=== PATIENT | female | born 1995 | race Hispanic/Latino ===

== ENCOUNTER 2024-01-09 19:53 | Emergency (ER) | payer OTHER ==
[~2024-01-09] VITALS: Ht 162.6 cm; Wt 98.4 kg
[2024-01-09 20:15] LABS: APPEARANCE,URINE CLOUDY (CLEAR); BILIRUBIN,URINE NEGATIVE (NEGATIVE); COLOR,URINE LIGHT-YELLOW (YELLOW); GLUCOSE, URINE (UA) NEGATIVE (NEGATIVE); KETONES,URINE NEGATIVE (NEGATIVE); LEUKOCYTE ESTERASE ,URINE 75 Leu/uL (NEGATIVE); NITRATE,URINE NEGATIVE (NEGATIVE); PH,URINE 6.5 (5.0-8.0); PROTEIN,URINE NEGATIVE (NEGATIVE); UROBILINOGEN,URINE 0.2 mg/dL (0.2-1.0)
[2024-01-09 20:16] LABS: HCG,QUALITATIVE URINE NEGATIVE (NEGATIVE)
[2024-01-09 20:17] LABS: BASOPHILS # (AUTO) 0.07 K/uL (0.00-0.20); BASOPHILS % (AUTO) 0.7 % (0.0-5.0); EOSINOPHILS # (AUTO) 0.12 K/uL (0.00-0.70); EOSINOPHILS % (AUTO) 1.1 % (0.0-8.0); HEMATOCRIT 39.9 % (36-48); IMMATURE GRANULOCYTE ABSOLUTE 0.04 K/uL (0-1); LYMPHOCYTES # (AUTO) 2.7 K/uL (1.0-4.8); LYMPHOCYTES % (AUTO) 25.5 % (21.0-51.0); MEAN CORPUSCULAR HEMOGLOBIN 29.6 pg (27.0-33.0); MEAN CORPUSCULAR HGB CONC 33.6 g/dL (32.0-36.0); MEAN CORPUSCULAR VOLUME 88.1 fL (79-99); MONOCYTES # (AUTO) 0.6 K/uL (0.1-1.0); MONOCYTES % (AUTO) 5.9 % (3.0-13.0); NEUTROPHILS % (AUTO) 66.4 % (40.0-77.0); PLATELET COUNT (AUTO) 348 K/uL (130-400); RED BLOOD CELL COUNT(AUTO) 4.53 MIL/uL (4.00-5.50); RED CELL DISTRIBUTION WIDTH 11.8 % (11.0-15.5); WHITE BLOOD COUNT (AUTO) 10.5 K/uL (4.8-10.8)
[2024-01-09 20:18] LABS: ADD UA MICROSCOPIC YES
[2024-01-09 20:24] LABS: MUCUS,URINE RARE LPF (None Seen); SQUAMOUS EPITHELIAL CELL,UR MANY /HPF (0-2)
[2024-01-09 20:27] LABS: CREATININE 0.7 mg/dL (0.5-1.0); POTASSIUM 3.7 mmol/L (3.5-5.1)
[2024-01-09] MEDS: LACTATED RINGERS 1000ML 1,000 ML IV ONE (20:29)
[2024-01-09] MEDS: MAG/ALUM/SIMETH 30 ML UDCUP PO ONE (20:29)
[2024-01-09] MEDS: ACETAMINOPHEN 325 MG TAB PO ONE (20:30)
[2024-01-09] MEDS: PANTOPRAZOLE 40 MG/VIAL IVP ONE (20:30)
[2024-01-09] MEDS: LIDOCAINE HCL 2% VISCOUS 15 ML UDCUP PO ONE (20:30)
[2024-01-09 20:32] LABS: ALBUMIN 3.8 g/dL (3.5-5.0); BILIRUBIN,TOTAL 0.8 mg/dL (0.2-1.0); TOTAL PROTEIN, SERUM 7.7 g/dL (6.0-8.3)
[2024-01-09] MEDS: KETOROLAC 30MG VIAL (30MG/ML) IVP ONE (21:49)
[2024-01-09] MEDS: KETOROLAC 30MG VIAL (30MG/ML) ONE (21:50)
[2024-01-09] MEDS ORDERED: PHEN-846 PO (23:28)
[2024-01-09] MEDS ORDERED: CEPH500B PO (23:28)
[2024-01-10 00:20] VITALS: BP 126/79; PULSE 69; RESP 18; O2SAT 98
== END 2024-01-10 00:22 | disposition home or self-care (01) ==
LOC: EDH 19:53
DX: N39.0 Urinary tract infection, site not specified (principal); R10.30 Lower abdominal pain, unspecified
CPT/HCPCS: 99285; 74176; 96374; 96361; 96375; 82550; 80053; 85025; 87088; 81001; 81025; 36415; J7120; J1885; C9113

== ENCOUNTER 2024-07-26 02:50 | Emergency (ER) | payer SELFPAY ==
[~2024-07-26] VITALS: Ht 162.6 cm; Wt 93.5 kg
[~2024-07-26 02:50] MED LIST: CEPH500B PO; PHEN-846 PO
--- NOTE | 2024-07-26 02:53 | NUR ---
UA CUP PROVIDED
[2024-07-26 03:12] LABS: APPEARANCE,URINE CLEAR (CLEAR); BILIRUBIN,URINE NEGATIVE (NEGATIVE); COLOR,URINE COLORLESS (YELLOW); GLUCOSE, URINE (UA) NEGATIVE (NEGATIVE); KETONES,URINE NEGATIVE (NEGATIVE); LEUKOCYTE ESTERASE ,URINE NEGATIVE Leu/uL (NEGATIVE); NITRATE,URINE NEGATIVE (NEGATIVE); OCCULT BLOOD,URINE NEGATIVE (NEGATIVE); PH,URINE 5.5 (5.0-8.0); PROTEIN,URINE NEGATIVE (NEGATIVE); UROBILINOGEN,URINE 0.2 mg/dL (0.2-1.0)
[2024-07-26 03:18] LABS: BACTERIA,URINE RARE /HPF (None Seen); RBC,URINE 0-1 /HPF (0-1); SQUAMOUS EPITHELIAL CELL,UR RARE /HPF (0-2)
[2024-07-26 03:18] LABS: BASOPHILS # (AUTO) 0.07 K/uL (0.00-0.20); BASOPHILS % (AUTO) 0.6 % (0.0-5.0); EOSINOPHILS % (AUTO) 0.9 % (0.0-8.0); HEMATOCRIT 36.8 % (36-48); IMMATURE GRANULOCYTE ABSOLUTE 0.07 K/uL (0-1); LYMPHOCYTES # (AUTO) 2.2 K/uL (1.0-4.8); LYMPHOCYTES % (AUTO) 19.6 % (21.0-51.0); MEAN CORPUSCULAR HEMOGLOBIN 30.3 pg (27.0-33.0); MEAN CORPUSCULAR HGB CONC 33.4 g/dL (32.0-36.0); MEAN CORPUSCULAR VOLUME 90.6 fL (79-99); MONOCYTES # (AUTO) 0.6 K/uL (0.1-1.0); NEUTROPHILS # (AUTO) 8.1 K/uL (1.8-7.7); NEUTROPHILS % (AUTO) 73.3 % (40.0-77.0); PLATELET COUNT (AUTO) 320 K/uL (130-400); RED BLOOD CELL COUNT(AUTO) 4.06 MIL/uL (4.00-5.50); RED CELL DISTRIBUTION WIDTH 12.6 % (11.0-15.5); WHITE BLOOD COUNT (AUTO) 11.1 K/uL (4.8-10.8)
[2024-07-26] MEDS: 0.9%NACL 1000ML 1,000 ML IV ONE (03:24)
[2024-07-26 03:25] LABS: CREATININE 0.8 mg/dL (0.5-1.0); POTASSIUM 3.8 mmol/L (3.5-5.1)
--- NOTE | 2024-07-26 03:48 | ERN ---
General Chief Complaint: OB<20 weeks gest. Stated Complaint: ABD PAIN Time Seen by MD: 02:52 Source: patient History of Present Illness Initial Comments PATIENT IS A 28-YEAR-OLD FEMALE RECENTLY FOUND OUT SHE WAS . STATES HE WAS A G-TUBE P 1 HAD UNKNOWN DATE. SHE WAS HAVING ABDOMINAL DISCOMFORT DECIDED TO COME IN TO BE EVALUATED. Allergies: Coded Allergies: No Known Allergies (Unverified Allergy, Unknown, 01/09/24) Home Meds Active Scripts Phenazopyridine HCl (Pyridium) 100 Mg Tab, 100 MG PO BID PRN for bladder spasm for 3 Days, #4 TAB Prov:ILIANA BECK MD 01/09/24 Cephalexin Monohydrate (Keflex) 500 Mg Cap, 500 MG PO QID for 7 Days, #28 CAP Prov:ILIANA BECK MD 01/09/24 Past Medical History Past Medical History: No Pertinent History Past Surgical History: Female( History) LMP: Jun 20, 2024 : 2 Para: 1 ROS Dictation CONSTITUTIONAL: NO CHILLS, NO FEVER, NO WEAKNESS, NO DIAPHORESIS, NO MALAISE. HEAD/FACE: NO SIGNS OF TRAUMA. EENT: NO EYE PAIN, NO BLURRED VISION, NO TEARING, NO DOUBLE VISION, NO EAR PAIN, NO EAR DISCHARGE, NO NOSE PAIN, NO NASAL CONGESTION, NO THROAT PAIN, NO THROAT SWELLING, NO MOUTH PAIN. RESPIRATORY: NO COUGH, NO ORTHOPNEA, NO SOB, NO STRIDOR, NO WHEEZING. CARDIOVASCULAR: NO CHEST PAIN, NO EDEMA, NO PALPITATIONS, NO SYNCOPE. GASTROINTESTINAL/ABDOMINAL: ABDOMINAL PAIN, NO CONSTIPATION, NO DIARRHEA, NO NAUSEA, NO VOMITING. GENITOURINARY: NO ABNORMAL DISCHARGE, NO DYSURIA, NO FREQUENT URINATION, NO HEMATURIA. NO COMPLAINTS OF PAIN IN THE GENITALS. MUSCULOSKELETAL: NO BACK PAIN, NO GOUT, NO JOINT PAIN, NO JOINT SWELLING, NO MUSCLE PAIN, NO MUSCLE STIFFNESS, NO NECK PAIN. INTEGUMENTARY: NO CHANGE IN COLOR, NO CHANGE IN HAIR/NAILS, NO DRYNESS, NO LESION, NO LUMPS, NO RASH. NEUROLOGICAL/PSYCH: NO ANXIETY, NOT DEPRESSED, NO EMOTIONAL PROBLEM, NO HEADACHE, NO NUMBNESS, NO PRE-EXISTING DEFICIT, NO HISTORY OF SEIZURES, NO TREMORS, NO WEAKNESS. HEMATOLOGIC/LYMPHATIC: NOT ANEMIC, NO HISTORY OF BLOOD CLOTS, NO APPARENT BLEEDING, NO BRUISING, GLANDS NOT SWOLLEN. ALL SYSTEMS NEGATIVE, EXCEPT NOTED. Physical Exam Physical Exam Dictation VITAL SIGNS: REVIEWED. GENERAL APPEARANCE: ALERT, ORIENTED X3, NO ACUTE DISTRESS, OBESE. HEAD AND FACE: NON-TRAUMATIC. EYES: PERRL, PINK CONJUNCTIVAS, EYELID NO TRAUMA, ANTERIOR CHAMBER CLEAR. EARS: PINNAS INTACT AND NO SIGNS OF TRAUMA OR ERYTHEMA. EAR CANALS CLEAR AND NO DISCHARGE. TMS NO ERYTHEMA. NOSE: NO DISCHARGE, NO BLEEDING. OROPHARYNX: MOUTH NORMAL, TEETH NO CARIES, TONGUE PINK. PHARYNX CLEAR, NO ERYTHEMA. TONSILS NO EXUDATES, NO ABSCESSES NOTED. MUCOUS MEMBRANE MOIST. NECK: SUPPLE, NON-TENDER, NO THYROMEGALY, NO MASSES, NO JVD, NO BRUITS. BREAST: DEFERRED. CHEST: NO TENDERNESS, NO CREPITUS, NO PARADOXICAL MOVEMENT, NO RETRACTIONS. LUNGS: CLEAR, WELL-VENTILATED, SYMMETRIC, NO RALES, NO WHEEZING, NO RHONCHI, NO STRIDOR, GOOD BREATH SOUNDS BILATERALLY. HEART: REGULAR RATE, REGULAR RHYTHM, NO MURMUR, NO GALLOPS. VASCULAR: NO PERIPHERAL EDEMA. ABDOMEN: SOFT, POSITIVE BOWEL SOUNDS, NONDISTENDED, NO GUARDING, SUPRAPUBIC TENDER, NO REBOUND, NO MASSES NO HEPATOMEGALY, NO SPLENOMEGALY, NO HART'S SIGN, NO HERNIAS. RECTAL: DEFERRED. GENITAL: DEFERRED. NEUROLOGICAL: NORMAL SPEECH, GROSS MOTOR FUNCTION INTACT, GROSS SENSORY FUNCTION INTACT. MUSCULOSKELETAL: NECK NONTENDER, FULL RANGE OF MOTION, BACK NONTENDER, FULL RANGE OF MOTION. EXTREMITIES: NONTENDER, FULL RANGE OF MOTION. SKIN: COLOR PINK, DRY, NO TURGOR, NO RASH, NO LACERATIONS, NO ABRASIONS, NO CONTUSIONS. LYMPHATICS: DEFERRED. Results Laboratory and Microbiology Lab and Micro Result Laboratory Tests Test 07/26/24 03:00 07/26/24 03:11 Urine Color COLORLESS (YELLOW) Urine Appearance CLEAR (CLEAR) Urine pH 5.5 (5.0-8.0) Urine Specific [place] 1.006 (1.001-1.031) Urine Protein NEGATIVE mg/dL (NEGATIVE) Urine Glucose (UA) NEGATIVE mg/dL (NEGATIVE) Urine Ketones NEGATIVE mg/dL (NEGATIVE) Urine Occult Blood NEGATIVE (NEGATIVE) Urine Nitrate NEGATIVE (NEGATIVE) Urine Bilirubin NEGATIVE mg/dL (NEGATIVE) Urine Urobilinogen 0.2 mg/dL (0.2-1.0) Urine Leukocyte Esterase NEGATIVE Zak/uL Urine RBC 0-1 /HPF (0-1) Urine WBC 2-5 /HPF (0-1) H Urine Squamous Epithelial Cells RARE /HPF (0-2) Urine Bacteria RARE /HPF (None Seen) White Blood Count 11.1 K/uL (4.8-10.8) H Red Blood Count 4.06 MIL/uL (4.00-5.50) Hemoglobin 12.3 g/dL (12.0-16.0) Hematocrit 36.8 % (36-48) Mean Corpuscular Volume 90.6 fL (79-99) Mean Corpuscular Hemoglobin 30.3 pg (27.0-33.0) Mean Corpuscular Hemoglobin Concent 33.4 g/dL (32.0-36.0) Red Cell Distribution Width 12.6 % (11.0-15.5) Platelet Count 320 K/uL (130-400) Mean Platelet Volume 9.7 fL (7.5-10.5) Immature Granulocyte % (Auto) 0.6 % (0-1) Neutrophils (%) (Auto) 73.3 % (40.0-77.0) Lymphocytes (%) (Auto) 19.6 % (21.0-51.0) L Monocytes (%) (Auto) 5.0 % (3.0-13.0) Eosinophils (%) (Auto) 0.9 % (0.0-8.0) Basophils (%) (Auto) 0.6 % (0.0-5.0) Neutrophils # (Auto) 8.1 K/uL (1.8-7.7) H Lymphocytes # (Auto) 2.2 K/uL (1.0-4.8) Monocytes # (Auto) 0.6 K/uL (0.1-1.0) Eosinophils # (Auto) 0.10 K/uL (0.00-0.70) Basophils # (Auto) 0.07 K/uL (0.00-0.20) Absolute Immature Granulocyte (auto 0.07 K/uL (0-1) Nucleated Red Blood Cells 0.0 % (0.0-0.19) Sodium Level 134 mmol/L (136-145) L Potassium Level 3.8 mmol/L (3.5-5.1) Chloride Level 99 mmol/L (101-111) L Carbon Dioxide Level 28 mmol/L (21-32) Blood Urea Nitrogen 12 mg/dL (7-18) Creatinine 0.8 mg/dL (0.5-1.0) Glomerular Filtration Rate Calc 104 mL/min (>90) Random Glucose 97 mg/dL (70-105) Total Calcium 9.1 mg/dL (8.5-10.1) Total Bilirubin 1.0 mg/dL (0.2-1.0) Aspartate Amino Transf (AST/SGOT) 28 U/L (10-37) Alanine Aminotransferase (ALT/SGPT) 60 U/L (12-78) Alkaline Phosphatase 100 U/L (50-136) Total Protein 7.5 g/dL (6.0-8.3) Albumin 3.7 g/dL (3.5-5.0) Lipase 25 U/L (16-77) Human Chorionic Gonadotropin, Quant 3658 mIU/mL (0-5) H Labs Reviewed?: Yes EKG/XRAY/US/CT/MRI Ultrasound Comment OB LESS THAN 14 WEEK ULTRASOUND-NO IUP SEEN AT THIS TIME MDM MDM: DIFFERENTIAL DIAGNOSIS: ABDOMINAL PAIN, PELVIC PAIN, PELVIC PAIN IN PATIENT IS A 28-YEAR-OLD FEMALE COMING IN TO BE EVALUATED FOR LOWER ABDOMINAL DISCOMFORT. PATIENT STATES THAT SHE JUST FOUND OUT SHE WAS CAME IN TO BE EVALUATED FOR ABDOMINAL DISCOMFORT. LABORATORY WORKUP NEGATIVE FOR ACUTE FINDINGS. ULTRASOUND DID NOT DISCLOSE AN IUP AT THIS TIME THE BASED ON QUANTITATIVE HCG IS TOO EARLY TO BE SEEN. ED Course Orders Procedure Category Date Status Time Cbc With Differential LAB 07/26/24 Complete 02:59 Comprehensive LAB 07/26/24 Complete Metabolic Panel 02:59 Lipase LAB 07/26/24 Complete 02:59 Urinalysis LAB 07/26/24 Complete W/Microscopic 02:59 Hcg,Quantitative LAB 07/26/24 Complete 02:59 0.9%Nacl 1000ml (Ns PHA 07/26/24 Complete 1000ml) 03:00 Us Ob <14 Weeks US 07/26/24 Taken 02:59 Current Medications Medications (Trade) Dose Ordered Sig/Vee Route PRN Reason Start Time Stop Time Status Last Admin Dose Admin Sodium Chloride 1,000 ml @ 0 mls/hr ONCE ONCE IV 07/26/24 03:00 07/26/24 03:01 DC 07/26/24 03:24 Vital Signs Date Time Temp Pulse Resp B/P (MAP) Pulse Ox O2 Delivery O2 Flow Rate FiO2 07/26/24 03:26 97.2 70 18 103/51 98 Room Air* 0 21 07/26/24 02:52 97.0 73 16 123/75 100 Room Air DX & DISP Disposition: Discharge Departure Impression: Primary Impression: Condition: Stable Additional Instructions: FOLLOW-UP WITH PRIMARY CARE PROVIDER IN 1 TO 2 DAYS. TAKE MEDICATIONS DIRECTED HERE IN THE EMERGENCY ROOM. OKAY TO CONTINUE HOME MEDICATIONS UNLESS OTHERWISE DISCUSSED DURING YOUR VISIT IN THE EMERGENCY ROOM TODAY. RETURN TO YOUR NEAREST EMERGENCY ROOM IF SYMPTOMS WORSEN OR IF THERE IS NO IMPROVEMENT. CALL 911 IF YOU NEED IMMEDIATE ASSISTANCE. TAKE TYLENOL [id number] NEEDED AND IF NO CONTRAINDICATIONS ARE PRESENT. INCREASE ORAL HYDRATION. A WOUND CULTURE OR URINE CULTURE WAS ORDERED HERE IN THE EMERGENCY ROOM DEPARTMENT PLEASE FOLLOW-UP WITH PRIMARY CARE PROVIDER AND ADVISE THEM TO GET REPEAT PORTS FROM OUR FACILITY. IF YOU HAD ANY JOSE LUIS WRAP/SPLINTS THAT WERE APPLIED HERE, PLEASE DO NOT REMOVE THEM UNTIL YOU SEE YOUR PRIMARY CARE OR SPECIALTY. REFERRALS: Referrals: SELF,REFERRAL (PCP) ROSEY DIA MD Time of Disposition: 04:08 ILIANA BECK MD Jul 26, 2024 03:48
[2024-07-26 03:50] LABS: ALBUMIN 3.7 g/dL (3.5-5.0); TOTAL PROTEIN, SERUM 7.5 g/dL (6.0-8.3)
[2024-07-26 04:31] VITALS: BP 110/58; PULSE 76; RESP 16; TEMP 97.5; O2SAT 100
--- NOTE | 2024-07-26 08:10 | HMCIMG ---
US OB <14 WEEKS REASON: ABD PAIN COMPARISON: None TECHNIQUE: Routine pelvic sonogram. FINDINGS: Uterus is 10.7 x 4.9 x 5.9 cm. Endometrium is 9 mm. There are no endometrial or myometrial masses. Right ovary appears normal. Left ovary was not separately identified. There are no adnexal masses. There is no free fluid in the pelvic cul-de-sac. IMPRESSION: 1. Normal pelvic sonogram.
== END 2024-07-26 04:32 | disposition home or self-care (01) ==
LOC: EDH 02:50
DX: O26.891 Other specified pregnancy related conditions, first trimester (principal); R10.84 Generalized abdominal pain; R10.2 Pelvic and perineal pain; Z3A.00 Weeks of gestation of pregnancy not specified
CPT/HCPCS: 99284; 76801; 80053; 84702; 83690; 85025; 81001; 36415; J7030

== ENCOUNTER 2024-08-03 17:10 | Emergency (ER) | payer MEDICAID ==
[~2024-08-03] VITALS: Ht 162.6 cm; Wt 92.1 kg
[2024-08-03 17:13] VITALS: BP_DIAS 85
[2024-08-03 17:51] LABS: BASOPHILS % (AUTO) 0.8 % (0.0-5.0); EOSINOPHILS # (AUTO) 0.14 K/uL (0.00-0.70); EOSINOPHILS % (AUTO) 1.1 % (0.0-8.0); IMMATURE GRANULOCYTE ABSOLUTE 0.07 K/uL (0-1); LYMPHOCYTES # (AUTO) 2.5 K/uL (1.0-4.8); LYMPHOCYTES % (AUTO) 19.5 % (21.0-51.0); MEAN CORPUSCULAR HEMOGLOBIN 30.2 pg (27.0-33.0); MEAN CORPUSCULAR HGB CONC 33.3 g/dL (32.0-36.0); MEAN CORPUSCULAR VOLUME 90.7 fL (79-99); MONOCYTES # (AUTO) 0.7 K/uL (0.1-1.0); MONOCYTES % (AUTO) 5.3 % (3.0-13.0); NEUTROPHILS # (AUTO) 9.3 K/uL (1.8-7.7); NEUTROPHILS % (AUTO) 72.8 % (40.0-77.0); PLATELET COUNT (AUTO) 337 K/uL (130-400); RED CELL DISTRIBUTION WIDTH 12.2 % (11.0-15.5); WHITE BLOOD COUNT (AUTO) 12.8 K/uL (4.8-10.8)
[2024-08-03 18:10] LABS: CREATININE 0.7 mg/dL (0.5-1.0); POTASSIUM 4.4 mmol/L (3.5-5.1)
[2024-08-03 18:28] VITALS: BP_SYST 106; PULSE 68; RESP 20; TEMP 98.8; O2SAT 98
--- NOTE | 2024-08-03 18:31 | HMCIMG ---
US OB <14 WEEKS HISTORY: vaginal bleeding and cramping during COMPARISON: 07/26/2024 FINDINGS: The uterus measures 11.2 cm in length and there appears to be a gestational sac within the endometrium with no identified yolk sac or pole or heart tones. The ovaries are unremarkable in size and echogenicity and vascularity. The adnexa are free of fluid or masses. IMPRESSION: 1.6 cm questionable gestational sac in the uterus with no identified yolk sac or pole. This may represent a early intrauterine gestation that would measure 5 weeks.
[2024-08-03 18:49] LABS: APPEARANCE,URINE CLEAR (CLEAR); BILIRUBIN,URINE NEGATIVE (NEGATIVE); COLOR,URINE COLORLESS (YELLOW); GLUCOSE, URINE (UA) NEGATIVE (NEGATIVE); KETONES,URINE NEGATIVE (NEGATIVE); LEUKOCYTE ESTERASE ,URINE NEGATIVE Leu/uL (NEGATIVE); NITRATE,URINE NEGATIVE (NEGATIVE); OCCULT BLOOD,URINE SMALL (NEGATIVE); PH,URINE 6.5 (5.0-8.0); PROTEIN,URINE NEGATIVE (NEGATIVE); UROBILINOGEN,URINE 0.2 mg/dL (0.2-1.0)
[2024-08-03 18:50] LABS: ADD UA MICROSCOPIC YES
[2024-08-03 18:51] LABS: RBC,URINE 0-1 /HPF (0-1); SQUAMOUS EPITHELIAL CELL,UR RARE /HPF (0-2); WBC,URINE 0-1 /HPF (0-1)
--- NOTE | 2024-08-03 19:18 | ERN ---
General Chief Complaint: Vaginal Bleeding Stated Complaint: BLEEDING OB5-6WKS Time Seen by MD: 17:11 Time Seen by Midlevel: 17:11 Source: patient History of Present Illness Initial Comments Patient is a 28-year-old female presenting to the emergency department with light vaginal spotting that started earlier today. Patient states she had a positive test one week ago. She has an appointment with her OBGYN coming up in two days. She is currently taking vitamins and denies taking any other medication. Denies any large clots or severe lower abdominal cramping. Allergies: Coded Allergies: No Known Allergies (Unverified Allergy, Unknown, 01/09/24) Home Meds Active Scripts Phenazopyridine HCl (Pyridium) 100 Mg Tab, 100 MG PO BID PRN for bladder spasm for 3 Days, #4 TAB Prov:ILIANA BECK MD 01/09/24 Cephalexin Monohydrate (Keflex) 500 Mg Cap, 500 MG PO QID for 7 Days, #28 CAP Prov:ILIANA BECK MD 01/09/24 Past Medical History Past Medical History: No Pertinent History Past Surgical History: Female( History) LMP: Jun 20, 2024 : 2 Para: 1 Aborts: 0 ROS Dictation CONSTITUTIONAL: Negative except for HPI HEAD/FACE: Negative except for HPI EENT: Negative except for HPI RESPIRATORY: Negative except for HPI GASTROINTESTINAL/ABDOMINAL: Negative except for HPI GENITOURINARY: Negative except for HPI MUSCULOSKELETAL: Negative except for HPI INTEGUMENTARY: Negative except for HPI NEUROLOGICAL/PSYCH: Negative except for HPI HEMATOLOGIC/LYMPHATIC: Negative except for HPI All Systems Negative, Except as noted above. 13 point review of systems assessed and all negative except for above. Physical Exam Physical Exam Dictation Vital Signs reviewed General Appearance: Alert, oriented x 3, no acute distress, well developed, nourished. Head and Face: non-traumatic. Eyes: PERRL, pink conjunctivas, eyelid no trauma, anterior chamber with arcus senilis. Ears: Pinnas intact and no signs of trauma or erythema ear canals clear and no discharge TM no erythema Nose: No discharge, no bleeding. Oropharynx: Mouth normal, tongue pink, pharynx clear,no erythema, tonsils no exudates, no abscesses noted, mucous membrane moist Neck: Supple, non-tender, no thyromegaly, no masses, no JVD, no bruits Breast:Deferred Chest:No tenderness, no crepitus, no paradoxical movement, no retractions Lungs:Clear, well-ventilated, symmetric, no rales, no wheezing, no rhonchi, no stridor, good breath sounds bilaterally Heart: Regular rate, regular rhythm, no murmur, no gallops Vascular: no peripheral edema, Abdomen: Soft, positive bowel sounds, nondistended, no guarding, nontender, no rebound, no masses no hepatomegaly, no splenomegaly, no York's sign, no hernias. Rectal: Deferred Genital: Deferred Neurological: Normal speech, motor function intact, sensory function intact Musculoskeletal: Neck nontender, full range of motion, back nontender, full range of motion, Extremities: nontender, full range of motion Skin: Color pink, dry, no turgor, no rash, no lacerations, no abrasions, no contusions. Lymphatic: Deferred Results Laboratory and Microbiology Lab and Micro Result Laboratory Tests Test 08/03/24 17:29 08/03/24 18:37 White Blood Count 12.8 K/uL (4.8-10.8) H Red Blood Count 4.30 MIL/uL (4.00-5.50) Hemoglobin 13.0 g/dL (12.0-16.0) Hematocrit 39.0 % (36-48) Mean Corpuscular Volume 90.7 fL (79-99) Mean Corpuscular Hemoglobin 30.2 pg (27.0-33.0) Mean Corpuscular Hemoglobin Concent 33.3 g/dL (32.0-36.0) Red Cell Distribution Width 12.2 % (11.0-15.5) Platelet Count 337 K/uL (130-400) Mean Platelet Volume 10.1 fL (7.5-10.5) Immature Granulocyte % (Auto) 0.5 % (0-1) Neutrophils (%) (Auto) 72.8 % (40.0-77.0) Lymphocytes (%) (Auto) 19.5 % (21.0-51.0) L Monocytes (%) (Auto) 5.3 % (3.0-13.0) Eosinophils (%) (Auto) 1.1 % (0.0-8.0) Basophils (%) (Auto) 0.8 % (0.0-5.0) Neutrophils # (Auto) 9.3 K/uL (1.8-7.7) H Lymphocytes # (Auto) 2.5 K/uL (1.0-4.8) Monocytes # (Auto) 0.7 K/uL (0.1-1.0) Eosinophils # (Auto) 0.14 K/uL (0.00-0.70) Basophils # (Auto) 0.10 K/uL (0.00-0.20) Absolute Immature Granulocyte (auto 0.07 K/uL (0-1) Nucleated Red Blood Cells 0.0 % (0.0-0.19) Sodium Level 141 mmol/L (136-145) Potassium Level 4.4 mmol/L (3.5-5.1) Chloride Level 103 mmol/L (101-111) Carbon Dioxide Level 28 mmol/L (21-32) Blood Urea Nitrogen 12 mg/dL (7-18) Creatinine 0.7 mg/dL (0.5-1.0) Glomerular Filtration Rate Calc 122 mL/min (>90) Random Glucose 85 mg/dL (70-105) Total Calcium 9.6 mg/dL (8.5-10.1) Human Chorionic Gonadotropin, Quant 71238 mIU/mL (0-5) H Urine Color COLORLESS (YELLOW) Urine Appearance CLEAR (CLEAR) Urine pH 6.5 (5.0-8.0) Urine Specific [place] 1.001 (1.001-1.031) Urine Protein NEGATIVE mg/dL (NEGATIVE) Urine Glucose (UA) NEGATIVE mg/dL (NEGATIVE) Urine Ketones NEGATIVE mg/dL (NEGATIVE) Urine Occult Blood SMALL (NEGATIVE) H Urine Nitrate NEGATIVE (NEGATIVE) Urine Bilirubin NEGATIVE mg/dL (NEGATIVE) Urine Urobilinogen 0.2 mg/dL (0.2-1.0) Urine Leukocyte Esterase NEGATIVE Zak/uL Urine RBC 0-1 /HPF (0-1) Urine WBC 0-1 /HPF (0-1) Urine Squamous Epithelial Cells RARE /HPF (0-2) Urine Bacteria None /HPF (None Seen) Labs Reviewed?: Yes MDM MDM: Patient is a 28-year-old female presenting to the emergency department with light vaginal spotting that started earlier today. Patient states she had a positive test one week ago. She has an appointment with her OBGYN coming up in two days. She is currently taking vitamins and denies taking any other medication. Denies any large clots or severe lower abdominal cramping. On physical examination patient is in no acute distress. Abdominal examination is unremarkable. Her CBC and chemistries unremarkable. Her hCG quant is which is an increase from previous hCG quant that was performed approximately one week ago of 3000. Her pelvic ultrasound shows a questionable gestational sac which could be related to an early intrauterine gestation. There was no signs of an ectopic at this time. Her urinalysis does not show any evidence of infection. Patient already has an appointment with her OBGYN in two days. She was advised to keep the appointment for possible hCG testing and repeat ultrasound. If she was to develop any new or worsening symptoms she was advised to report to the ER for further evaluation. Patient is agreeable with this plan and all of her questions have been answered Differential diagnosis: 1st trimester , spontaneous , urinary tract infection, implantation bleeding There are no social concerns with this patient. Prescription drug management Prescriptions will include: None Medical management and examination interpretation discussions were had by me with other qualified healthcare professionals as indicated for the patient's care. ED Course Orders Procedure Category Date Status Time Cbc With Differential LAB 08/03/24 Complete 17:11 Basic Metabolic Panel LAB 08/03/24 Complete 17:11 Urinalysis Profile LAB 08/03/24 Complete 17:11 Hcg,Quantitative LAB 08/03/24 Complete 17:13 Us Ob <14 Weeks US 08/03/24 Resulted 17:19 Vital Signs Date Time Temp Pulse Resp B/P (MAP) Pulse Ox O2 Delivery O2 Flow Rate FiO2 08/03/24 18:28 98.8 68 20 106/ 98 Room Air* 0 21 08/03/24 17:13 98.8 68 20 125/85 98 Room Air 0 DX & DISP Disposition: Discharge Departure Impression: Primary Impression: First trimester Additional Impression: Vaginal spotting Condition: Stable Additional Instructions: Your blood work today is unremarkable. Your hCG quant is . Your pelvic ultrasound shows a 1.6 cm questionable gestational sac in the uterus with no identified yolk sac or pole. This may represent an early . You will need to follow up with your OBGYN on Monday as scheduled for repeat hCG testing and possibly a repeat ultrasound. If you develop any new or worsening symptoms please return to the emergency department for further evaluation. Referrals: HUMERA MCMILLAN MD (PCP) Time of Disposition: 19:13 I have reviewed the case, and I agree with, Diagnosis and Plan I performed the substantive portion of the visit. I have reviewed and personally made and approve the management plan that is documented in the note by myself or the BASILIO. I acknowledge for responsibility for the patient's management plan. MISTY FINNEGAN Aug 03, 2024 19:18
== END 2024-08-03 19:34 | disposition home or self-care (01) ==
LOC: EDH 17:10
DX: O26.851 Spotting complicating pregnancy, first trimester (principal); R10.2 Pelvic and perineal pain; Z3A.01 Less than 8 weeks gestation of pregnancy; Z79.899 Other long term (current) drug therapy; Z98.890 Other specified postprocedural states
CPT/HCPCS: 36415; 76801; 80048; 81001; 84702; 85025; 99284

== ENCOUNTER 2025-01-20 00:51 | Emergency (ER) | payer MEDICAID ==
[~2025-01-20] VITALS: Ht 162.6 cm; Wt 99.8 kg
--- NOTE | 2025-01-20 00:55 | NUR ---
PT ARRIVED A TRAUMA ALERT VIA POV SP FALL DOWN STAIRS WITH -LOC, - HEAD INJURY, - BT, 30 WKS . PT REPORTS SLIPPING AND FALLING TO HER BUTTOCKS SHE FELL DOWN THE STAIRS. DENIES MIDLINE CERVICAL TENDERNESS, DENIES VAGINAL BLEEDING. REPORTS DECREASED MOVEMENT, FHT 144 UPON ARRIVAL TO ED. PT IS A&OX4, GCS 15, RESP EVEN AND UNLABORED ON RA, AIRWAY PATENT AND MAINTAINED. DENIES NEEDS AT THIS TIME. SEE TRAUMA FLOW SHEET.
--- NOTE | 2025-01-20 02:04 | ERN ---
General Chief Complaint: Trauma Activation Stated Complaint: FALL Time Seen by MD: 00:52 Source: patient History of Present Illness Initial Comments Patient is a 29-year-old female coming in after she slipped landing on her bottom coming down steps. She states that she was concerned because she could not feel the baby move. She does not have complaint of pain. Allergies: Coded Allergies: No Known Allergies (Unverified Allergy, Unknown, 01/09/24) Home Meds Active Scripts Phenazopyridine HCl (Pyridium) 100 Mg Tab, 100 MG PO BID PRN for bladder spasm for 3 Days, #4 TAB Prov:ILIANA BECK MD 01/09/24 Cephalexin Monohydrate (Keflex) 500 Mg Cap, 500 MG PO QID for 7 Days, #28 CAP Prov:ILIANA BECK MD 01/09/24 Past Medical History Past Medical History: No Pertinent History Past Surgical History: Female( History) : 2 Para: 1 Aborts: 0 ROS Dictation CONSTITUTIONAL: No chills, no fever, no weakness, no diaphoresis, no malaise. HEAD/FACE: No signs of trauma. EENT: No eye pain, no blurred vision, no tearing, no double vision, no ear pain, no ear discharge, no nose pain, no nasal congestion, no throat pain, no throat swelling, no mouth pain. RESPIRATORY: No cough, no orthopnea, no SOB, no stridor, no wheezing. CARDIOVASCULAR: No chest pain, no edema, no palpitations, no syncope. GASTROINTESTINAL/ABDOMINAL: No abdominal pain, no constipation, no diarrhea, no nausea, no vomiting. GENITOURINARY: No abnormal discharge, no dysuria, no frequent urination, no hematuria. No complaints of pain in the genitals. MUSCULOSKELETAL: No back pain, no gout, no joint pain, no joint swelling, no muscle pain, no muscle stiffness, no neck pain. INTEGUMENTARY: No change in color, no change in hair/nails, no dryness, no lesion, no lumps, no rash. NEUROLOGICAL/PSYCH: No anxiety, not depressed, no emotional problem, no headache, no numbness, no pre-existing deficit, no history of seizures, no tremors, no weakness. HEMATOLOGIC/LYMPHATIC: Not anemic, no history of blood clots, no apparent bleeding, no bruising, glands not swollen. All Systems Negative, Except as Noted. Physical Exam Physical Exam Dictation VITAL SIGNS: Reviewed. GENERAL APPEARANCE: Alert, oriented x3, no acute distress, obese. HEAD AND FACE: Non-traumatic. EYES: PERRL, pink conjunctivas, eyelid no trauma, anterior chamber clear. EARS: Pinnas intact and no signs of trauma or erythema. Ear canals clear and no discharge. TMs no erythema. NOSE: No discharge, no bleeding. OROPHARYNX: Mouth normal, teeth no caries, tongue pink. Pharynx clear, no erythema. Tonsils no exudates, no abscesses noted. Mucous membrane moist. NECK: Supple, non-tender, no thyromegaly, no masses, no JVD, no bruits. BREAST: Deferred. CHEST: No tenderness, no crepitus, no paradoxical movement, no retractions. LUNGS: Clear, well-ventilated, symmetric, no rales, no wheezing, no rhonchi, no stridor, good breath sounds bilaterally. HEART: Regular rate, regular rhythm, no murmur, no gallops. VASCULAR: No peripheral edema. ABDOMEN: Soft, positive bowel sounds, , no guarding, nontender, no rebound, no masses no hepatomegaly, no splenomegaly, no York's sign, no hernias. RECTAL: Deferred. GENITAL: Deferred. NEUROLOGICAL: Normal speech, gross motor function intact, gross sensory function intact. MUSCULOSKELETAL: Neck nontender, full range of motion, back nontender, full range of motion. EXTREMITIES: Nontender, full range of motion. SKIN: Color pink, dry, no turgor, no rash, no lacerations, no abrasions, no contusions. LYMPHATICS: Deferred. Results Laboratory and Microbiology Labs Reviewed?: Yes EKG/XRAY/US/CT/MRI Ultrasound Comment Ultrasound--BP P normal MDM MDM: Differential diagnosis: Fall, decreased movement, Rationale: Tests considered and ordered secondary to shared decision making include: Previous outside records reviewed: Old ER visits. Patient is a 29-year-old female at 24 weeks by date coming in after she fell down and was concerned that the fetus was not moving. Ultrasound BP P did show normal findings. Patient will be discharged in stable condition she states he has been asymptomatic since she got here. ED Course Orders Procedure Category Date Status Time Us Fbp Wo Non-Stress US 01/20/25 Taken 00:53 Vital Signs Date Time Temp Pulse Resp B/P (MAP) Pulse Ox O2 Delivery O2 Flow Rate FiO2 01/20/25 01:00 97.9 84 17 121/78 99 Room Air* 0 21 01/20/25 00:52 97.9 87 20 129/85 100 Room Air DX & DISP Disposition: Discharge Departure Impression: Primary Impression: Wellness examination Condition: Stable Additional Instructions: FOLLOW-UP WITH PRIMARY CARE PROVIDER IN 1 TO 2 DAYS. TAKE MEDICATIONS DI RECTED HERE IN THE EMERGENCY ROOM. OKAY TO CONTINUE HOME MEDICATIONS UNLESS OTHERWISE DISCUSSED DURING YOUR VISIT IN THE EMERGENCY ROOM TODAY. RETURN TO YOUR NEAREST EMERGENCY ROOM IF SYMPTOMS WORSEN OR IF THERE IS NO IMPROVEMENT. CALL 911 IF YOU NEED IMMEDIATE ASSISTANCE. TAKE TYLENOL [id number] NEEDED AND IF NO CONTRAINDICATIONS ARE PRESENT. INCREASE ORAL HYDRATION. A WOUND CULTURE OR URINE CULTURE WAS ORDERED HERE IN THE EMERGENCY ROOM DEPARTMENT PLEASE FOLLOW-UP WITH PRIMARY CARE PROVIDER AND ADVISE THEM TO GET REPEAT PORTS FROM OUR FACILITY. IF YOU HAD ANY JOSE LUIS WRAP/SPLINTS THAT WERE APPLIED HERE, PLEASE DO NOT REMOVE THEM UNTIL YOU SEE YOUR PRIMARY CARE OR SPECIALTY. Referrals: Referrals: HUMERA MCMILLAN MD (PCP) Time of Disposition: 02:09 ILIANA BECK MD January 20, 2025 02:03
[2025-01-20 02:15] VITALS: BP 134/79; PULSE 86; RESP 19; TEMP 98.3; O2SAT 100
--- NOTE | 2025-01-20 02:15 | NUR ---
PT IS TRAUMA CLEARED PER DR. BECK, VSS, RESP EVEN AND UNLABORED ON RA, AIRWAY PATENT AND MAINTAINED. NO SIGNS OF ACUTE DISTRESS. CONTINUES TO DENY VAGINAL BLEEDING AT TIME OF DEPARTURE. ALL BELONGINGS SENT WITH PATIENT AT THIS TIME. INFORMATION AND EDUCATION REGARDING DC/FOLLOW UP/WARNING SIGNS TO MONITOR AT HOME PROVIDED TO PATIENT. VERBALIZED UNDERSTANDING OF ALL INFORMATION PROVIDED.
--- NOTE | 2025-01-20 09:41 | HMCIMG ---
ULTRASOUND, BIOPHYSICAL PROFILE CLINICAL DATA INFORMATION: fall FINDINGS: breathin body movement: 2 tone: 2 Amniotic fluid volume: 2 Total: 8 IMPRESSION: Normal biophysical profile ultrasound, as described.
== END 2025-01-20 02:23 | disposition home or self-care (01) ==
LOC: EDH 00:51
DX: Z04.3 Encounter for examination and observation following other accident (principal); W01.0XXA Fall on same level from slipping, tripping and stumbling without subsequent striking against object, initial encounter; Y93.89 Activity, other specified; Y92.89 Other specified places as the place of occurrence of the external cause; Y99.8 Other external cause status
CPT/HCPCS: 76819; 99284